=== PATIENT | female | born 1995 | race American Indian/Alaskan Native ===

== ENCOUNTER 2019-06-13 17:51 | Outpatient (CLI) | payer MEDICAID ==
[2019-06-13 19:03] LABS: Bacteria,Urine 1+ /HPF (Negative); Bilirubin,Urine NEG (Negative); Blood,Urine NEG (Negative); Color,Urine Yellow (Yellow); Mucus,Urine FEW /HPF; Protein,Urine <15 mg/dL mg/dL (Negative)
[2019-06-13 19:06] LABS: HCG Qualitative,Urine Positive (Negative)
[2019-06-13] MEDS ORDERED: ACETAMINOPHEN 325 MG TAB PO ONE (20:23)
[2019-06-13 20:27] LABS: Mean Corpuscular HGB Conc 29 % (30-34); Red Blood Count 4.38 M/mm3 (3.65-5.03)
[2019-06-13 20:31] LABS: Hematocrit 25.7 % (30.3-42.9); Hemoglobin 7.5 gm/dl (10.1-14.3); Mean Corpuscular Volume 59 fl (79-97); Platelet Count 141 K/mm3 (140-440); Red Cell Distribution Width 22.4 % (13.2-15.2)
--- NOTE | 2019-06-13 20:31 | Emergency Department Report ---
ED N/V/D HPI - General Chief complaint: Nausea/Vomiting/Diarrhea Stated complaint: VOMITING/URINATING BLOOD Time Seen by Provider: 06/13/19 19:35 Source: patient Mode of arrival: Ambulatory Limitations: No Limitations - History of Present Illness Initial comments: 24-year-old -[place] female presents to the emergency room for vomiting. Blood and 4 episodes and nausea today with abdominal pain. Patient denies any fever chills no vaginal bleeding or vaginal discharge. Patient reports that she has a past medical history of asthma and had a surgical history of tonsils and adenoids removed. Patient reports that she is 2 para 0. Patient is accompanied with her mother. MD complaint: nausea, abdominal pain -: This morning Description of Vomiting: blood-streaked Associated Abdominal Pain: Yes Radiation: none Severity: severe Quality: cramping Consistency: intermittent Improves with: none Worsens with: none Associated Symptoms: nausea/vomiting. denies: chest pain, cough, diaphoresis, fever/chills, shortness of breath - Related Data Previous Rx's Medication Instructions Recorded Last Taken Type Nitrofurantoin [place]/M-Cryst 100 mg PO Q12HR #14 capsule 06/13/19 Unknown Rx [Macrobid CAP] Pnv,Calcium 72/Iron/Folic Acid 1 each PO QDAY #90 tablet 06/13/19 Unknown Rx [ Plus Tablet] Allergies Allergy/AdvReac Type Severity Reaction Status Date / Time No Known Allergies Allergy Unverified 06/13/19 17:54 ED Review of Systems ROS: Stated complaint: VOMITING/URINATING BLOOD Other details as noted in HPI Comment: All other systems reviewed and negative ED Past Medical Hx - Past Medical History Hx Asthma: Yes - Surgical History Additional Surgical History: tonsilectomy - Social History Smoking Status: Never Smoker Substance Use Type: None - Medications Home Medications: Home Medications Medication Instructions Recorded Confirmed Last Taken Type Nitrofurantoin [place]/M-Cryst 100 mg PO Q12HR #14 capsule 06/13/19 Unknown Rx [Macrobid CAP] Pnv,Calcium 72/Iron/Folic Acid 1 each PO QDAY #90 tablet 06/13/19 Unknown Rx [ Plus Tablet] ED Physical Exam - General Limitations: No Limitations ED Course Vital Signs 06/13/19 18:03 Temperature 98.3 F Pulse Rate 115 H Respiratory 16 Rate Blood Pressure 126/75 O2 Sat by Pulse 99 Oximetry ED Medical Decision Making - Lab Data Result diagrams: 06/13/19 20:09 06/13/19 20:09 - Medical Decision Making 24-year-old -[place] female presents to the emergency room for vomiting. Blood and 4 episodes and nausea today with abdominal pain. Patient denies any fever chills no vaginal bleeding or vaginal discharge. Patient reports that she has a past medical history of asthma and had a surgical history of tonsils and adenoids removed. Patient reports that she is 2 para 0. Patient is accompanied with her mother. ultrasound shows the patient is 28 weeks and 5 days. CBC shows a patient is anemic, urinalysis shows a patient puffy has a urinary tract infection will send urine culture. Discussed with L&D nurse Jesus to inform him that patient will be sent to be evaluated. Patient be discharged from us for urinary tract infection. Start Macrobid 100 mg bid for 7 days Critical care attestation.: If time is entered above; I have spent that time in minutes in the direct care of this critically ill patient, excluding procedure time. ED Disposition Clinical Impression: Urinary tract infection during Qualifiers: Weeks of gestation: 28 weeks Qualified Code(s): Z3A.28 - 28 weeks gestation of Disposition: DC-01 TO HOME OR SELFCARE Is pt being admited?: No Does the pt Need Aspirin: No Condition: Stable Instructions: Urinary Tract Infection in Women (ED), (ED) Additional Instructions: Complete antibiotics as prescribed. Take your vitamins daily. It is very important for you to follow-up with OB as she wanted 28 weeks . Prescriptions: Nitrofurantoin [place]/M-Cryst [Macrobid CAP] 100 mg PO Q12HR #14 capsule Pnv,Calcium 72/Iron/Folic Acid [ Plus Tablet] 1 each PO QDAY #90 tablet Referrals: PRIMARY CARE, [Primary Care Provider] - 3-5 Days [facility] [Provider Group] - 3-5 Days Forms: Work/School Release Form(ED)
[2019-06-13 20:47] LABS: Alanine Aminotransferase 7 units/L (7-56); Albumin 3.9 g/dL (3.9-5); BUN/Creatinine Ratio 8; Blood Urea Nitrogen 3 mg/dL (7-17); Calcium 9.2 mg/dL (8.4-10.2); Hemolysis Index 0
--- NOTE | 2019-06-13 22:16 | Ultrasound Report ---
Limited Obstetrical Ultrasound Indication: abd pain +hcg, cramping Shows a normal-appearing intrauterine with an estimated gestational age of 28 weeks 0 days. I do not see a significant discrepancy between head and body measurements. This is markedly more adv anced than the stated estimated gestational age by clinical dating of 8 weeks 1 day. No obvious anomalies are seen though this was not a full anatomical survey. Cardiac activity was note d at 143 bpm. Fetus is in a cephalic position. Placenta is anterior and free of the internal cervic al os. Estimated weight is 1145 g +/- 169 g. Amniotic fluid volume appears appropriate for ag e. PIETER measurement was 14.3 cm which is within normal limits. Impression: 28 week without obvious abnormality on limited survey Signer Name: Chinmay Olmedo MD Signed: 06/13/2019 10:12 PM Workstation Name: [id number]
[2019-06-13 22:41] LABS: Total Cells Counted 100
[2019-06-13 22:42] LABS: Anisocytosis 3+; Band Neutrophils # (Manual) 0.1 K/mm3; Basophils % (Manual) 0 % (0.0-1.8); Eosinophils % (Manual) 0 % (0.0-4.3)
[2019-06-13 22:43] LABS: Hypochromasia 3+; Poikilocytosis 2+; Tear Drop Cells 2+
[2019-06-13 22:44] LABS: Ovalocytes 1+; Platelet Estimate Consistent w Auto
[2019-06-13 22:46] LABS: Schistocytes Few
[2019-06-13 23:10] VITALS: BP 135/83
== END 2019-06-13 23:37 | disposition home or self-care (01) ==
LOC: TRG 17:51 → ED 17:51 → EDSTATUS 22:52 → TRG 23:37
PROVIDERS: ATTEND Emergency Medicine
DX: O21.2 Late vomiting of pregnancy (principal); Z3A.28 28 weeks gestation of pregnancy
CPT/HCPCS: 36415; 76816; 80053; 81001; 81025; 84702; 85007; 85025; 87086